=== PATIENT | female | born 1970 | race Caucasian/White ===

== ENCOUNTER 2021-09-16 00:23 | Day surgery (SDC) | payer OTHER, SELFPAY ==
[2021-07-30 16:03] VITALS: BMI 51.7
[2021-09-05 15:43] VITALS: BMI 51.7
[2021-09-16 11:30] VITALS: BP 181/76; PULSE 101; RESP 20; TEMP 36.6; O2SAT 98
[2021-09-16] MEDS: LACTATED RINGERS 1,000 ML 150 ML IV CONT (11:43)
--- NOTE | 2021-09-16 11:57 | P.PNAN_ITS ---
Anes - Initial Pre Proc Eval Procedure: Operation Date: 09/16/21 12:30 Proposed Procedures p Screening Colonoscopy - Rosales Rinaldi MD Date/Time: 09/16/21 11:57 Surgeon: Rosales Rinaldi MD Pre Op Diagnosis: neoplasm screening Patient Data Age: 51 Gender: F Height: 1.7 m Weight: 153.9 kg Last Vital Signs Temp 36.6 C 09/16/21 11:30 Pulse 101 H 09/16/21 11:30 Resp 20 09/16/21 11:30 BP 181/76 H 09/16/21 11:30 Pulse Ox 98 09/16/21 11:30 Allergies Allergy/AdvReac Type Severity Reaction Status Date / Time codeine Allergy Unknown emesis Verified 09/16/21 11:28 Home Medications Medication Instructions Recorded Confirmed Type atenolol 25 mg PO DAILY 07/30/21 07/30/21 History escitalopram oxalate 10 mg PO DAILY 07/30/21 07/30/21 History esomeprazole magnesium [Nexium] 20 mg PO DAILY 07/30/21 07/30/21 History fluticasone furoate-vilanterol 1 inh INHALATION DAILY 07/30/21 07/30/21 History [Breo Ellipta] levothyroxine 75 mcg PO DAILY 07/30/21 07/30/21 History montelukast [Singulair] 10 mg PO DAILY 07/30/21 07/30/21 History Patient hx anesthesia problems: none Family hx anesthesia problems: none Results Review: All pre-operative results and documents have been reviewed as part of the pre-operative evaluation. [facility] Past Medical History Medical History (Updated 09/16/21 @ 12:00 by Payam Harris MD) Asthma Hypothyroidism Morbid obesity Social History Social History Smoking status: Never smoker Alcohol intake: never Alcohol use details: rarely Substance use: never Substance use type: does not use Living arrangements: with family Spiritual care concerns: No Anes - Eval Final PreProcedure Day of Procedure 09/16/21 11:57 Patient weight: super morbidly obese Heart: regular rate and rhythm Lungs: clear to auscultation Airway: Mallampati scale class II Neurological: alert and oriented Last oral intake: >/= 8 hours ASA classification: IV Emergent: no Anesthetic plan: proceed Anesthesia type and monitoring: general GIVS and standard monitoring Results Review: All pre-operative results and documents have been reviewed as part of the pre-operative evaluation. Informed Consent: The patient's anesthetic plan and its attendant risks and benefits were discussed with the patient/family/POA. Questions were solicited and answers provided to the satisfaction of the patient/family/POA.
--- NOTE | 2021-09-16 12:22 | PM.HPGS ---
History of Present Illness History of Present Illness Consent: Risks, benefits, and alternatives have been discussed and questions answered. Patient agrees to proceed with procedure. Chief complaint: neoplasm screening Narrative: Bing Box is a 51 year old female here for first screening colonoscopy Review of Systems Constitutional: Constitutional: Denies headache(s) and Denies weakness Eyes: Eyes: Denies blurry vision ENT: Reports Normal hearing present, Denies headache(s) and Denies neck pain Cardiovascular: Cardiovascular: Denies chest pain and Denies dyspnea Respiratory: Respiratory: Denies dyspnea Gastrointestinal: Gastrointestinal: Reports no additional gastrointestinal complaints Genitourinary: Genitourinary: Denies dysuria Musculoskeletal: Musculoskeletal: Denies neck pain Integumentary/Breasts: Skin/Breast: Denies dry skin Neurologic: Reports Normal hearing present, Denies headache(s) and Denies weakness Psychiatric: Psychiatric: Denies anxiety Endocrine: Endocrine: Denies change in body appearance Hematologic/Lymphatic: Hematologic/Lymphatic: Denies easy bleeding Allergic/Immunologic: Allergic/Immunologic: Denies urticaria PMF Past Medical History Medical History (Updated 09/16/21 @ 12:23 by Rosales Rinaldi MD) Asthma Colon cancer screening Hypothyroidism Morbid obesity Social History Social History Smoking status: Never smoker Alcohol intake: never Alcohol use details: rarely Substance use: never Substance use type: does not use Living arrangements: with family Spiritual care concerns: No Meds Home Medications and Allergies Home Medications Medication Instructions Recorded Confirmed Type atenolol 25 mg PO DAILY 07/30/21 07/30/21 History escitalopram oxalate 10 mg PO DAILY 07/30/21 07/30/21 History esomeprazole magnesium [Nexium] 20 mg PO DAILY 07/30/21 07/30/21 History fluticasone furoate-vilanterol 1 inh INHALATION DAILY 07/30/21 07/30/21 History [Breo Ellipta] levothyroxine 75 mcg PO DAILY 07/30/21 07/30/21 History montelukast [Singulair] 10 mg PO DAILY 07/30/21 07/30/21 History Allergies Allergy/AdvReac Type Severity Reaction Status Date / Time codeine Allergy Unknown emesis Verified 09/16/21 11:28 Vital Signs Vital Signs - 24 hr 09/16/21 11:30 Temperature 97.9 F Pulse Rate 101 H Respiratory Rate 20 Blood Pressure 181/76 H Pulse Oximetry 98 Exam Const: General: comfortable and no acute distress HENMT: General nose exam: Normal nares present Eyes: General: appearance normal, both eyes and all related structures Neck: Neck: no JVD Resp: Auscultation: clear to auscultation bilaterally Cardio: Rate: regular rate Rhythm: regular rhythm GI: Inspection: non-distended GI Palp: Yes Soft to palpation Skin: General skin exam: normal color Neuro: General: gait normal Speech: normal speech Extrem: General: normal to inspection Psych: Mental Status: mental status grossly normal Assessment and Plan Assessment and plan (1) Colon cancer screening: Code(s): Z12.11 - Encounter for screening for malignant neoplasm of colon Status: Acute Assessment and Plan: colonoscopy
[2021-09-16 12:41] VITALS: BP 154/78; PULSE 78; RESP 22; O2SAT 95
[2021-09-16 12:51] VITALS: BP 144/90; PULSE 75; RESP 24; O2SAT 100
[2021-09-16 13:01] VITALS: BP 132/66; PULSE 75; RESP 21; O2SAT 100
== END 2021-09-16 13:12 | disposition home or self-care (01) ==
PROVIDERS: PCP Nurse Practitioner Family; Visit Provider Internal Medicine Gastroenterology
PROC: 0DJD8ZZ Inspection of Lower Intestinal Tract, Via Natural or Artificial Opening Endoscopic (ICD-10-PCS; CPT 45378; principal; 2021-09-16 12:30)
DX: Z12.11 Encounter for screening for malignant neoplasm of colon (principal); K57.30 Diverticulosis of large intestine without perforation or abscess without bleeding; K64.4 Residual hemorrhoidal skin tags; J45.909 Unspecified asthma, uncomplicated; E03.9 Hypothyroidism, unspecified; E66.01 Morbid (severe) obesity due to excess calories; Z68.43 Body mass index [BMI] 50.0-59.9, adult
CPT/HCPCS: G0121; J2704; J7120

== ENCOUNTER → 2021-10-19 09:54 | Outpatient (CLI) | payer OTHER, SELFPAY ==
--- NOTE | ~2021-10-19 | MR_ITS ---
EXAMINATION: MR lumbar spine wo con DATE: 10/19/2021 10:24 INDICATION: Low back pain. TECHNIQUE: Magnetic resonance imaging (MRI) of the lumbar spine was performed without intravenous con trast. Sequences included sagittal T2-weighted FSE, sagittal T2-weighted FS FSE, sagittal T1-weighted FSE, and axial T2-weighted FSE. COMPARISON: None FINDINGS: Bone alignment is normal. There are Schmorl's nodes at multiple levels. There is mildly dec reased disc height at L2-L3 and L3-L4. The distal spinal cord signal intensity is normal. The conus m edullaris is at L1. The following disc levels are specifically discussed: L1-L2: The disc does not extend beyond the endplate margin. There is moderate right and mild left fac et joint osteoarthritis. There is mild right neural foraminal stenosis. There is no central canal marcio nosis. L2-L3: The disc does not extend beyond the endplate margin. There is mild bilateral facet joint osteo arthritis. There is no neural foraminal stenosis. There is no central canal stenosis. L3-L4: The disc is bulging with superimposed left foraminal extrusion. There is mild bilateral facet joint osteoarthritis. There is mild left neural foraminal stenosis. There is mild central canal steno sis. L4-L5: The disc does not extend beyond the endplate margin. There is severe bilateral facet joint ost eoarthritis. There is mild left neural foraminal stenosis. There is no central canal stenosis. L5-S1: The disc does not extend beyond the endplate margin. There is severe right facet joint osteoar thritis. There is mild right neural foraminal stenosis. There is no central canal stenosis. IMPRESSION: 1. Mild lumbar spondylosis. Reviewed, dictated and finalized at location A. IMPRESSION: 1. Mild lumbar spondylosis.
== END ==
PROVIDERS: PCP Nurse Practitioner Family; Visit Provider Chiropractor Rehabilitation
DX: M47.817 Spondylosis without myelopathy or radiculopathy, lumbosacral region (principal); M51.47 Schmorl's nodes, lumbosacral region; M48.07 Spinal stenosis, lumbosacral region
CPT/HCPCS: 72148

== ENCOUNTER → 2023-01-08 13:33 | Outpatient (CLI) | payer OTHER, SELFPAY ==
--- NOTE | ~2023-01-08 | XR_ITS ---
EXAMINATION: XR chest 2V DATE: 01/08/2023 13:59 INDICATION: Dyspnea TECHNIQUE: frontal view of the chest was obtained. COMPARISON: Chest radiograph dated 09/28/2003 FINDINGS: The lungs are clear with no focal airspace opacities, pulmonary edema, pleural effusion or pneumothor ax. The cardiomediastinal silhouette is normal. Mild thoracic spondylosis. Cholecystectomy clips in r ight upper quadrant. IMPRESSION: 1. No acute cardiopulmonary disease. Reviewed, dictated and finalized at location L.
== END ==
PROVIDERS: PCP Nurse Practitioner Family; Visit Provider Nurse Practitioner Family
DX: R06.00 Dyspnea, unspecified (principal)
CPT/HCPCS: 71046

== ENCOUNTER 2023-09-11 10:34 | Emergency (ER) | payer OTHER, SELFPAY ==
[2023-09-11 10:45] VITALS: BP 116/60; PULSE 85; RESP 16; TEMP 36; O2SAT 97
--- NOTE | 2023-09-11 11:03 | ED.URI ---
HPI - URI/Sore Throat General Chief Complaint: Upper Respiratory Infection Stated Complaint: Ear Clogged and Head Congestion Time Seen by Provider: 09/11/23 10:47 Source: patient and RN notes reviewed Mode of arrival: ambulatory Limitations: no limitations History of Present Illness HPI Narrative: Patient presents today with a 3 week history of nasal congestion, ear clogging, sinus pressure. She is also coughing at night. She has been taking Tylenol, Mucinex, nasal spray, and cough medicine without much relief. She has become short of breath at night once and used her albuterol inhaler. History of asthma, diabetes. Related Data Home Medications Medication Instructions Recorded Confirmed atenolol 50 mg tablet 25 mg PO DAILY 07/30/21 09/11/23 escitalopram oxalate 10 mg tablet 10 mg PO DAILY 07/30/21 09/11/23 esomeprazole magnesium 20 mg 20 mg PO DAILY 07/30/21 09/11/23 capsule,delayed release (Nexium) levothyroxine 75 mcg tablet 75 mcg PO DAILY 07/30/21 09/11/23 montelukast 10 mg tablet 10 mg PO DAILY 07/30/21 09/11/23 (Singulair) albuterol 90 mcg/actuation aerosol 90 mcg inhalation PRN PRN 09/11/23 09/11/23 inhaler Shortness Of Breath Or Wheezing amlodipine 10 mg tablet 10 mg PO DAILY 09/11/23 09/11/23 fluticasone fur. 200 mcg-umeclid 2 inh inhalation DAILY 09/11/23 09/11/23 62.5 mcg-vilant 25 mcg inhalat.powder (Trelegy Ellipta) levonorgestrel 21 mcg/24 hours (8 See Rx Instructions .Route .COMPLEX 09/11/23 09/11/23 yrs) 52 mg intrauterine device (Mirena) omalizumab 150 mg/mL subcutaneous See Rx Instructions .Route .COMPLEX 09/11/23 09/11/23 syringe (Xolair) rosuvastatin 5 mg tablet 5 mg PO DAILY 09/11/23 09/11/23 tirzepatide 15 mg/0.5 mL 15 mg subcut WEEKLY 09/11/23 09/11/23 subcutaneous pen injector (Sonali) Allergies Allergy/AdvReac Type Severity Reaction Status Date / Time codeine AdvReac Intermediate Nausea and Verified 09/11/23 10:43 Vomiting Review of Systems Review of Systems: CONSTITUTIONAL: Denies body aches, fever, chills, or sweats. EYES: Denies visual changes, redness, or discharge. ENT: Denies rhinorrhea, sore throat, or otalgia.+ congestion, ear clogging, sinus pressure CARDIOVASCULAR: Denies chest pain, palpitations, or edema. RESPIRATORY: + cough, shortness of breath. GASTROINTESTINAL: Denies abdominal pain, nausea, vomiting, or diarrhea. GENITOURINARY: Denies dysuria or hematuria. SKIN: Denies rash, itching, or wounds. MUSCULOSKELETAL: Denies back pain, joint pain, or myalgia. NEUROLOGIC: Denies headache, numbness, tingling, or weakness. PSYCH: Denies depression or anxiety. [facility] Past Medical History Medical History Asthma Colon cancer screening Hypothyroidism Morbid obesity Social History Social History Smoking status: Never smoker Alcohol intake: never Alcohol use details: rarely Substance use: never Substance use type: does not use Living arrangements: with family Spiritual care concerns: No Comments At time of signature, I have reviewed and agree with nursing past medical, surgical, social and family history unless otherwise noted. Please see nursing chart for further information. There is no relevant family history pertinent to the presenting complaint Exam Narrative: GENERAL: Well-appearing, well-nourished, and in no acute distress. HEAD: Normocephalic, atraumatic. EYES: EOMI. No redness or drainage. Conjunctivae normal. ENT: Mucous membranes pink and moist. Nares congested. No rhinorrhea. TMs normal bilaterally. Throat normal. Uvula midline. NECK: Normal AROM. Supple. No lymphadenopathy. CHEST: No respiratory distress. Clear to auscultation. HEART: Regular rate and rhythm. No murmur appreciated. EXTREMITIES: Normal range of motion. No edema. SKIN: Warm, dry, no rash. Capillary refill normal. N
== END 2023-09-11 11:07 | disposition home or self-care (01) ==
PROVIDERS: Emergency Provider Nurse Practitioner; PCP Nurse Practitioner Family
DX: J01.00 Acute maxillary sinusitis, unspecified (principal); J45.901 Unspecified asthma with (acute) exacerbation; E11.9 Type 2 diabetes mellitus without complications; E03.9 Hypothyroidism, unspecified; Z79.899 Other long term (current) drug therapy
CPT/HCPCS: 99213; G0463

== ENCOUNTER 2024-04-19 08:02 | Outpatient (CLI) | payer OTHER, SELFPAY ==
--- NOTE | 2024-04-20 12:51 | WPDPFTINT ---
PFT Procedure Performed PFT Procedure Performed Spirometry with Pre/Post Bronchodilator Plethysmography (Lung Vol) Diffusing Cap (DLCO) Flow Vol Loop PFT Interpretation Lung volumes were measured with the body plethysmography method. Lung volumes are unremarkable. Spirometry showed diminished expiratory flow rates and a normal FEV1 to FVC ratio 76%. Following administration of a bronchodilator there was no significant increase in expiratory flow rates. Lung diffusion capacity is within the normal range at 93% predicted. The flow-volume loop is unremarkable. Impression: Nonspecific pattern. Lung diffusion capacity within the normal range.
== END 2024-04-19 08:03 | disposition home or self-care (01) ==
PROVIDERS: PCP Nurse Practitioner Family; Visit Provider Nurse Practitioner Family
DX: R05.3 Chronic cough (principal)
CPT/HCPCS: 94060; 94726; 94729

== ENCOUNTER 2024-04-19 08:05 | Outpatient (CLI) | payer OTHER, SELFPAY ==
--- NOTE | ~2024-04-19 | CT_ITS ---
CT Scan of the Chest without Contrast: Clinical Indication: Chronic cough Technique: Contiguous sections were acquired throughout the chest without intravenous contrast. Dose reduction technique was used on this scan by utilizing automated exposure control and iterative recon struction technique. The dose-length product (DLP) was 833.77 mGy-cm. Findings: There is no evidence of any significant mediastinal, hilar or axillary lymphadenopathy. The mediastin al soft tissues appear normal. There is no evidence of pleural or pericardial effusion. There is discoid left basilar atelectasis or scarring. Lungs are otherwise clear. Images through the upper abdomen reveal no abnormalities. Bilateral breast implants noted, with intra capsular rupture of the right-sided implant. Impression: Discoid atelectasis or scarring left lower lobe, otherwise clear lungs. Intracapsular rupture right-sided breast implant. Reviewed, dictated and finalized at location . Impression: Discoid atelectasis or scarring left lower lobe, otherwise clear lungs. Intracapsular rupture right-sided breast implant.
== END 2024-04-19 08:06 | disposition home or self-care (01) ==
LOC: ANHIMG 08:05
PROVIDERS: PCP Nurse Practitioner Family; Visit Provider Nurse Practitioner Family
DX: R05.3 Chronic cough (principal)
CPT/HCPCS: 71250